=== PATIENT | female | born 1980 | race Caucasian/White ===

== ENCOUNTER 2016-08-08 08:59 | Emergency (ER) | payer BC, OTHER ==
[~2016-08-08] VITALS: Ht 165.1 cm; Wt 97.9 kg
[~2016-08-08 08:59] MED LIST: FERR1TAB23 PO; FOLI1TAB7 PO; PRENTAB26 PO
[2016-08-08 09:06] VITALS: TEMP 36.9; Ht 165.1 cm; Wt 97.9 kg
[2016-08-08] MEDS ORDERED: RMCI IV (09:35)
[2016-08-08] MEDS ORDERED: METHYLPREDNISOLONE 125 MG VIAL IV STA (09:54)
[2016-08-08] MEDS: HYDROmorphone INJ 1 MG/ML SYR IV PRN ×4 (10:03→14:20)
--- NOTE | 2016-08-08 10:03 | EMERGENCY ROOM VISIT NOTE ---
History Report prepared by Joel: Tami Munson Under the Supervision of: Dr. Rufus Goode M.D. 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 She currently rates her discomfort as a 6/10 in severity. The patient reports a history of Ankylosing spondylitis. She states that three weeks ago she developed wrist pain, but states that it subsided within 24 hours. The patient states that she had a Remicade infusion 8 days ago. She states that that yesterday while at work she developed bilateral should aches and jaw aches, but states that the jaw pain subsided. The patient states that her right should pain is worse than her left. She reports that she had difficulty lifting her right arm last night to place the campa in the ignition last night secondary to the pain. The patient states that she needed assistance undressing due to the pain. She states that she had left over oxycodone from two years ago and states that she took that last evening, which alleviated her discomfort. The patient states that she woke this morning at 0400 with pain, but states that she could not get out of bed this morning due to the pain to get more pain medication. She denies any recent heavy lifting or trauma. The patient additionally notes that she developed uncontrollable shakes. 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 The patient denies any known tick bites, but does express concern for Lyme Disease. She denies any abdominal pain. The patient reports increased use of NSAIDs, and states that she has a history of a bleeding ulcer. Source of History: patient Onset: yesterday Position: shoulder (bilateral) Symptom Intensity: 6/10 Timing: other (persistent) Modifying Factors (Relieving): narcotics (oxycodone) Associated Symptoms: No abdominal pain Review of Systems All systems have been listed, reviewed, and are negative other than those previously mentioned. Please see Additional Medical History Sheet. Past Medical & Surgical Medical Problems: (1) Ankylosing spondylitis (2) delivery delivered (3) Eczema (4) Migraine (5) Pneumonia Surgical Problems: (1) Hx of adenoidectomy (2) Hx of cholecystectomy (3) Hx of tonsillectomy (4) S/P Vianney fundoplication (with gastrostomy tube placement) (5) [place] teeth extracted Family History Diabetes mellitus FHx: gallbladder disease Kidney disease or stones Social History Smoking Status: Never Smoker Alcohol Use: none Marital Status: Housing Status: lives with family Occupation Status: employed Current/Historical Medications Scheduled Infliximab (Remicade), 1 DOSE IV Q6WK Ondasetron Odt (Zofran Odt), 4 MG SL Q4 Prednisone (Prednisone), 20 MG PO BID Scheduled PRN Oxycodone Immediate Rel Tab (Roxicodone Ir), 1-2 TAB PO Q4H PRN for Severe Pain Allergies Coded Allergies: Penicillins (Verified Allergy, Intermediate, HIVES, 09/28/14) Adhesives (Verified Allergy, Unknown, 09/28/14) Erythromycin (Verified Adverse Reaction, Unknown, NAUSEA, 09/28/14) Physical Exam Vital Signs Date Time Temp Pulse Resp B/P (MAP) Pulse Ox O2 Delivery O2 Flow Rate FiO2 08/08/16 14:27 79 16 112/68 97 Room Air 08/08/16 12:40 76 18 104/63 98 Room Air 08/08/16 10:49 67 18 125/70 99 Room Air 08/08/16 09:06 36.9 91 18 128/77 100 Room Air Physical Exam GENERAL: Patient awake, alert, oriented x 3. Patient appears to be in moderate to severe distress, patient appears tearful. Patient follows commands. Patient does not appear toxic. Patient is adequately hydrated and well- nourished. SKIN: No erythema, pallor, cyanosis or rash HEENT: Normal head, pupils equal, reactive to light and accommodation. Oral cavity and posterior pharynx appear normal. Neck: Without adenopathy, no neck vein distention. LUNGS: Clear to auscultation. No wheezes, no rales, no rhonchi. HEART: No murmurs. No gallops. No rubs ABDOMEN: Soft nontender. EXTREMITIES: Patient has severe pain in both shoulders with movement, right greater than left. Minimal pain in knees with flexion. NEUROLOGIC: Cranial nerves II-XII within normal limits. No gross motor sensory function deficits. Medical Decision & Procedures Laboratory Results 08/08/16 10:17 Red Blood Count 4.45, Mean Corpuscular Volume 87.0, Mean Corpuscular Hemoglobin 28.5, Mean Corpuscular Hemoglobin Concent 32.8, Mean Platelet Volume 9.8, Neutrophils (%) (Auto) 74.6, Lymphocytes (%) (Auto) 16.1, Monocytes (%) (Auto) 8.2, Eosinophils (%) (Auto) 0.7, Basophils (%) (Auto) 0.2, Neutrophils # (Auto) 6.67, Lymphocytes # (Auto) 1.44, Monocytes # (Auto) 0.73, Eosinophils # (Auto) 0.06, Basophils # (Auto) 0.02 08/08/16 10:17 Test 08/08/16 10:17 White Blood Count 8.94 K/uL (4.8-10.8) Red Blood Count 4.45 M/uL (4.2-5.4) Hemoglobin 12.7 g/dL (12.0-16.0) Hematocrit 38.7 % (37-47) Mean Corpuscular Volume 87.0 fL (80-100) Mean Corpuscular Hemoglobin 28.5 pg (25-34) Mean Corpuscular Hemoglobin Concent 32.8 g/dl (32-36) Platelet Count 325 K/uL (130-400) Mean Platelet Volume 9.8 fL (7.4-10.4) Neutrophils (%) (Auto) 74.6 % Lymphocytes (%) (Auto) 16.1 % Monocytes (%) (Auto) 8.2 % Eosinophils (%) (Auto) 0.7 % Basophils (%) (Auto) 0.2 % Neutrophils # (Auto) 6.67 K/uL (1.4-6.5) Lymphocytes # (Auto) 1.44 K/uL (1.2-3.4) Monocytes # (Auto) 0.73 K/uL (0.11-0.59) Eosinophils # (Auto) 0.06 K/uL (0-0.5) Basophils # (Auto) 0.02 K/uL (0-0.2) RDW Standard Deviation 42.0 fL (36.4-46.3) RDW Coefficient of Variation 13.0 % (11.5-14.5) Immature Granulocyte % (Auto) 0.2 % Immature Granulocyte # (Auto) 0.02 K/uL (0.00-0.02) Erythrocyte Sedimentation Rate 26 mm/hr (0-21) Anion Gap 7.0 mmol/L (3-11) Est Creatinine Clear Calc Drug Dose 137.8 ml/min Estimated GFR () 132.6 Estimated GFR (Non- 114.4 BUN/Creatinine Ratio 12.0 (10-20) Calcium Level 8.6 mg/dl (8.5-10.1) Lyme Disease IgG Antibody NEG (NEG) Lyme Disease IgM Antibody NEG (NEG) Laboratory results as stated above per my review. Medications Administered Medications (Trade) Dose Ordered Sig/Dexter Route Start Time Stop Time Status Last Admin Dose Admin Methylprednisolone Sodium Succinate (Solu-Medrol IV) 125 mg NOW STAT IV 08/08/16 09:54 08/08/16 09:58 DC 08/08/16 10:03 125 MG Hydromorphone HCl (Dilaudid Inj) 1 mg Q1HWA PRN IV 08/08/16 10:00 08/08/16 15:05 DC 08/08/16 14:20 1 MG Ondansetron HCl (Zofran Inj) 4 mg STK-MED ONCE .ROUTE 08/08/16 11:02 08/08/16 11:03 DC 08/08/16 11:05 4 MG ED Course 0946: Past medical records reviewed. The patient was evaluated in room B12B. A complete history and physical examination was performed. 0954: Ordered Solu-Medrol IV 125 mg IV. 1000: Ordered Dilaudid Inj 1 mg IV. 1102: Ordered Zofran Inj 4 mg .route. 1259: I reevaluated the patient and she is still in a lot of pain. 1354: I reevaluated the patient and she is still experiencing pain. 1440: I reevaluated the patient and she is doing well. I discussed the exam findings with her and I discussed the treatment plan. She verbalized complete understanding and agreement. She is ready to go home. Medical Decision Nurses notes reviewed. Medical history sheet reviewed. Differential diagnosis includes but is not limited to: ankylosis spondylitis, other rheumatologic disease, lyme disease. Multiple labs were obtained. Please see above. The patient has no evidence of active infection. I do believe she is having a flareup of her underlying rheumatologic disease. The patient was given IV Solu-Medrol and multiple doses of pain medication. Patient did improve. I believe it may take some time until the steroid actually kicks in. 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 Medication Reconciliation: I attest that I have personally reviewed the patient' s current medication list. Blood pressure Screening: Patient was found to have normal blood pressure on screening and does not require follow up. [place] Drug Monitoring Program Search Results: patient reviewed within database, no issues identified Impression Primary Impression: Ankylosing spondylitis Additional Impression: Intractable pain Scribe Attestation The scribe's documentation has been prepared under my direction and personally reviewed by me in its entirety. I confirm that the note above accurately reflects all work, treatment, procedures, and medical decision making performed by me. Departure Information Dispostion Home / Self-Care Prescriptions Prednisone (Prednisone) 20 Mg Tab 20 MG PO BID for 5 Days, #10 TAB Prov: Rufus Goode M.D. 08/08/16 Ondasetron Odt (ZOFRAN ODT) 4 Mg Tab 4 MG SL Q4 for Nausea, #10 TAB Prov: Rufus Goode M.D. 08/08/16 Oxycodone Immediate Rel Tab (ROXICODONE IR) 5 Mg Tab 1-2 TAB PO Q4H Y for Severe Pain, #24 TAB Prov: Rufus Goode M.D. 08/08/16 Referrals Nathen Og M.D. (PCP) Tanner Moctezuma M.D. Forms HOME CARE DOCUMENTATION FORM, IMPORTANT VISIT INFORMATION Patient Instructions My [facility] Additional Instructions 1-2 OxyIR every 4 hours as needed for moderate to severe pain. 1 Zofran every 4 hours as needed for nausea. 1 prednisone twice a day for 5 days. Continue your other medications as prescribed. Problem Qualifiers
[2016-08-08 10:30] LABS: BASO % 0.2 %; BASO ABS # 0.02 K/uL (0-0.2); COMPLETE YES; EOS % 0.7 %; HEMATOCRIT 38.7 % (37-47); IG% 0.2 %; LYMPH % 16.1 %; LYMPH ABS # 1.44 K/uL (1.2-3.4); MEAN CORPUSCULAR HEMOGLOBIN 28.5 pg (25-34); MEAN CORPUSCULAR HGB CONC 32.8 g/dl (32-36); MEAN PLATELET VOLUME 9.8 fL (7.4-10.4); MONO % 8.2 %; NEUT % 74.6 %; PLATELET COUNT 325 K/uL (130-400); RED BLOOD COUNT 4.45 M/uL (4.2-5.4); WHITE BLOOD COUNT 8.94 K/uL (4.8-10.8)
[2016-08-08 10:55] LABS: CALCIUM 8.6 mg/dl (8.5-10.1); CREATININE 0.66 mg/dl (0.60-1.20)
[2016-08-08] MEDS ORDERED: ONDANSETRON INJ 2 MG/ML 2 ML VIAL ONE (11:02)
[2016-08-08 11:56] LABS: LYME DISEASE AB IGG NEG (NEG); LYME DISEASE AB IGM NEG (NEG)
[2016-08-08 14:27] VITALS: BP 112/68; PULSE 79; O2SAT 97
[2016-08-08] MEDS ORDERED: ONDA4TAB10 SL (14:40)
[2016-08-08] MEDS ORDERED: PRED20TA PO (14:40)
[2016-08-08] MEDS ORDERED: OXYC1TAB3 PO (14:40)
== END 2016-08-08 14:57 | disposition home or self-care (01) ==
LOC: C.EDB 09:01
DX: M45.9 Ankylosing spondylitis of unspecified sites in spine (principal); R52 Pain, unspecified; L30.9 Dermatitis, unspecified; Z83.3 Family history of diabetes mellitus

== ENCOUNTER → 2017-02-12 | Outpatient (CLI) | payer BC ==
[~2017-02-12] MED LIST changes: -FERR1TAB23 PO; -FOLI1TAB7 PO; -PRENTAB26 PO; +RMCI IV
[2017-02-16 19:31] LABS: HERPES SIMPLEX AB IGG-1 < 0.90 INDEX (< 0.90); HERPES SIMPLEX AB IGG-2 < 0.90 INDEX (< 0.90); HERPES SIMPLEX CULT SOURCE GENITAL-VULVA; HERPES SIMPLEX VIRUS CULT ISOLATED (NOT ISOLATED); HSV1 AB IGM Negative (Negative); HSV2 AB IGM Negative (Negative)
== END | disposition home or self-care (01) ==
LOC: C.LAB1850 15:00
PROVIDERS: ATTEND Physician Assistant
DX: N94.9 Unspecified condition associated with female genital organs and menstrual cycle (principal)

== ENCOUNTER → 2017-05-20 | Day surgery (SDC) | payer OTHER ==
[2017-05-11 07:41] VITALS: BMI 36.0
[~2017-05-20] VITALS: Ht 165.1 cm; Wt 100.0 kg
[~2017-05-20] MED LIST changes: +ACETAMINOPHEN 325 MG TAB ONE; +ACETAMINOPHEN 325 MG TAB PO STA; +LIDOCAINE HCL 2% 2 ML VIAL (20MG/ML) ONE; +PRED1SUS3 OPB; +PROPOFOL IV EMULSION 10 MG/ML 20 ML VIAL IV ONE; -RMCI IV; +SODIUM CHLORIDE 0.9% 500ML 500 ML IV ONE; +[UNRECOGNIZED DRUG - CODE] IV
[2017-05-20 08:06] VITALS: Ht 165.1 cm; Wt 100.0 kg
--- NOTE | 2017-05-20 08:23 | Endo History and Physical ---
History & Physical Date of Service: May 20, 2017. Chief Complaint: dysphagia Referring Physician: dr. arizmendi History of Present Illness epigastric pain and dysphagia Past Medical History Asthma Past Surgical History Hx Cardiac Surgery: No Hx Internal Defibrillator: No Hx Pacemaker: No Hx Abdominal Surgery: Yes (CHRIS, TUBAL LIGATION, X 3, LAPAROSCOPY, DANITA FUNDOPLICATION) Hx of Implantable Prosthesis: No Hx Post-Op Nausea and Vomiting: No Hx Cancer Surgery: No Hx Thoracic Surgery: No Hx Orthopedic: No Hx Urinary Tract Surgery: No Family History IBD Social History Smoking Status: Former Smoker Hx Substance Use: No Hx Alcohol Use: Yes (RARELY) Allergies Coded Allergies: Penicillins (Verified Allergy, Intermediate, HIVES, 05/20/17) Adhesives (Verified Allergy, Unknown, ., 05/11/17) Erythromycin (Verified Adverse Reaction, Unknown, GI IRRITATION, 05/20/17) Current Medications Reported Home Medications Medications Dose Route/Sig Max Daily Dose Days Date Category Pred Forte 1% Oph (Prednisolone Acetate (Ophth)) 1 % Anne-Marie 1 Drops OPB QID 05/11/17 Reported Simponi Aria (Golimumab) 50 Mg/4 Ml Naima 1 Dose IV [id number] 05/11/17 Reported Vital Signs Weight (Kilograms): 100.00 Height (Feet): 5 Height (Inches): 5 Date Time Temp Pulse Resp B/P (MAP) Pulse Ox O2 Delivery O2 Flow Rate FiO2 05/20/17 08:13 36.8 85 18 127/74 (91) 98 Room Air Physical Exam General Appearance: WD/WN, no apparent distress Assessment and Plan EGD today
--- NOTE | 2017-05-20 08:38 | Discharge Instructions ---
Endoscopy Patient Instructions Date / Procedure(s) Performed May 20, 2017. EGD Allergy Information Coded Allergies: Penicillins (Verified Allergy, Intermediate, HIVES, 05/20/17) Adhesives (Verified Allergy, Unknown, ., 05/20/17) Erythromycin (Verified Adverse Reaction, Unknown, GI IRRITATION, 05/20/17) Discharge Date / Findings May 20, 2017. esophagitis; intact Vianney Medication Instructions Take omeprazole 20 mg daily for 6 weeks then take ranitidine 150 mg daily thereafter. Avoid NSAIDs. Provider Instructions Activity Restrictions - No exercising or heavy lifting for 24 hours. - Do not drink alcohol the day of the procedure. - Do not drive a car or operate machinery until the day after the procedure. - Do not make any important decisions or sign important papers in 24 hours after the procedure. Following Day: - Return to full activity which may include returning to work/school. Diet Start your diet with liquids and light foods (jello, soup, juice, toast). Then eat your usual diet if not nauseated. Limit caffeine. NO SODA. Treatment For Common After Affects For mild abdominal pain, bloating, or excessive gas: - Rest - Eat lightly - Lie on right side Follow-Up Information Follow-up with dr. arizmendi as scheduled Anesthesia Information What You Should Know You have had a procedure that required some medicine to reduce anxiety and discomfort. This treatment is called moderate sedation. After receiving the treatment, you may be sleepy, but you will be able to breathe on your own. The effects of the treatment may last for several hours. Follow these instructions along with Activity/Diet recommendations noted above: * Do NOT do anything where dizziness or clumsiness would be dangerous. * Rest quietly at home today, then you can be up and about tomorrow. * Have a responsible person stay with you the rest of today. * You may have had an I.V. today. If so, you may take the dressing off later today. Recommendations Call your doctor if: * Trouble breathing * Continuous vomiting for more than 24 hours * Temperature above 101 degrees * Severe abdominal pain or bloating * Pain not relieved by pain medicine ordered * There is increased drainage or redness from any incision * A large amount of rectal bleeding greater than 2-3 tablespoons. (If you had a polyp/s removed or have hemorrhoids, a small amount of blood - from the rectum is to be expected.) * You have any unanswered questions or concerns. IN THE EVENT OF A SERIOUS EMERGENCY, GO TO THE NEAREST EMERGENCY ROOM Your discharge instructions were prepared by provider Jammie Siddiqi. Patient Instructions Signature Page Kavya Cano Patient (or Guardian) Signature/Date: I have read and understand the instructions given to me by my caregivers. Caregiver/RN/Doctor Signature/Date: The above-named patient and/or guardian has received patient instructions on this date. + Original Patient Signature Page (only) stays with chart. Please make copy for patient.
--- NOTE | 2017-05-20 08:42 | GI REPORT ---
Procedure Date: 05/20/2017 8:26 AM Procedure: Upper GI endoscopy Indications: Epigastric abdominal pain, Dysphagia, Chest pain (non cardiac) Medicines: Propofol per Anesthesia Complications: No immediate complications. Estimated blood loss: None. Estimated Blood Loss: Estimated blood loss: none. Procedure: Pre-Anesthesia Assessment: - Prior to the procedure, a History and Physical was performed, and patient medications, allergies and sensitivities were reviewed. The patient's tolerance of previous anesthesia was reviewed. - The risks and benefits of the procedure and the sedation options and risks were discussed with the patient. All questions were answered and informed consent was obtained. - Patient identification and proposed procedure were verified prior to the procedure by the physician and the nurse. The procedure was verified in the pre-procedure area in the procedure room. - Mental Status Examination: alert and oriented. Airway Examination: normal oropharyngeal airway and neck mobility. Respiratory Examination: clear to auscultation. CV Examination: normal. Abdominal Examination: bowel sounds present, abdomen soft and non-tender, no masses or organomegaly noted. - ASA Grade Assessment: II - A patient with mild systemic disease. After obtaining informed consent, the endoscope was passed under direct vision. Throughout the procedure, the patient's blood pressure, pulse, and oxygen saturations were monitored continuously. The scope was introduced through the mouth, and advanced to the third part of duodenum. The upper GI endoscopy was accomplished without difficulty. The patient tolerated the procedure well. Findings: Savary-Hernández Grade II (multiple lesions and folds, noncircumferential, with or without confluence) esophagitis with no bleeding was found at the gastroesophageal junction. Evidence of a Vianney fundoplication was found in the gastric fundus. The wrap appeared intact. This was traversed. The examined duodenum was normal. Impression: - Savary-Hernández Grade II reflux esophagitis. - A Vianney fundoplication was found. The wrap appears intact. - Normal examined duodenum. - No specimens collected. Recommendation: - Take omeprazole 20 mg daily for 6 weeks then OK to transition to ranitidine 150 mg 1-2 times daily. - Limit caffeine. NO SODA. Avoid NSAIDs as possible. - Return to primary care physician as previously scheduled. - Discharge patient to home. Jammie Siddiqi D.O. Jammie Siddiqi, 05/20/2017 8:41:46 AM This report has been signed electronically. Note Initiated On: 05/20/2017 8:26 AM I attest to the content of the Intraoperative Record and orders documented therein, exceptions below
[2017-05-20 09:15] VITALS: BP 128/87; PULSE 73; O2SAT 100
--- NOTE | 2017-05-20 09:21 | Anesthesiology Progress Note ---
Anesthesia Post Op Note Date & Time May 20, 2017 at 09:19 Vital Signs Pain Intensity: 4 Vital Signs Past 12 Hours Date Time Temp Pulse Resp B/P (MAP) Pulse Ox O2 Delivery O2 Flow Rate FiO2 05/20/17 08:57 74 18 125/83 (97) 96 Room Air 05/20/17 08:42 79 18 120/76 (91) 96 Room Air 05/20/17 08:13 36.8 85 18 127/74 (91) 98 Room Air Notes Mental Status: alert / awake / arousable, participated in evaluation Pt Amnestic to Procedure: Yes Nausea / Vomiting: adequately controlled Pain: adequately controlled Airway Patency, RR, SpO2: stable & adequate BP & HR: stable & adequate Hydration State: stable & adequate Anesthetic Complications: no major complications apparent The patient had a headache when she woke up this morning. She is requesting something for her headache in recovery. She was given Acetaminophen 650 mg PO.
== END | disposition home or self-care (01) ==
LOC: C.GI 07:40
PROVIDERS: ATTEND Internal Medicine
DX: R10.13 Epigastric pain (principal); R13.10 Dysphagia, unspecified; K21.0 Gastro-esophageal reflux disease with esophagitis; R51 Headache; J45.909 Unspecified asthma, uncomplicated; Z87.891 Personal history of nicotine dependence; Z88.0 Allergy status to penicillin; Z88.1 Allergy status to other antibiotic agents

== ENCOUNTER → 2017-10-01 | Outpatient (CLI) | payer OTHER ==
[~2017-10-01] MED LIST changes: -ACETAMINOPHEN 325 MG TAB ONE; -ACETAMINOPHEN 325 MG TAB PO STA; -LIDOCAINE HCL 2% 2 ML VIAL (20MG/ML) ONE; -PROPOFOL IV EMULSION 10 MG/ML 20 ML VIAL IV ONE; -SODIUM CHLORIDE 0.9% 500ML 500 ML IV ONE
== END | disposition home or self-care (01) ==
LOC: C.LABPVFM 08:48
PROVIDERS: ATTEND Family Medicine
DX: Z00.00 Encounter for general adult medical examination without abnormal findings (principal)